=== PATIENT | male | born 1955 | race Caucasian/White ===

== ENCOUNTER 2017-08-03 23:04 | Inpatient (IN) | payer OTHER, MEDICAID ==
--- NOTE | 2017-08-03 23:12 | EDPHY ---
H & P HPI/ROS: HPI CHIEF COMPLAINT: Chest pain times 45 minutes cardiac activation in the field by EMS STEMI. HISTORY OF PRESENT ILLNESS: This patient very pleasant 61-year-old male, presents emergency room by EMS with chest pain. He describes his chest pain is left-sided radiates to his left neck and left arm. Describes it as a "burp that will move "he is diaphoretic. He called 911. This happened when he got out of the shower and was at rest. He denies any nausea vomiting denies shortness of breath. Denies pleuritic pain. Denies back pain or abdominal pain. Currently his pain is 8/10. He received 2 rounds of nitroglycerin by EMS , full-dose aspirin, 10 mg IV morphine. Continues to have ongoing pain. Upon arrival to the emergency room is hemodynamically stable however noted to be diaphoretic. Complaining of 8/10 left-sided chest pain. Vital signs stable. Not hypotensive. EMS activated cardiac alert in the field for a inferior ST elevation IA. Past Medical History: Hypertension, hyperlipidemia, smokes tobacco Past Surgical History: Left knee surgery, left hip surgery. Social History: Half pack per day of tobacco. Family History: Noncontributory ROS REVIEW OF SYSTEMS: A comprehensive 10 point review of systems is otherwise negative aside from elements mentioned in the history of present illness. Exam Constitutional appears nontoxic, triage nursing summary reviewed, vital signs reviewed, awake/alert. Eyes normal conjunctivae and sclera, EOMI, PERRLA. HENT normal inspection, atraumatic, moist mucus membranes, no epistaxis, neck supple/ no meningismus, no raccoon eyes. Respiratory clear to auscultation bilaterally, normal breath sounds, no respiratory distress, no wheezing. Cardiovascular rate normal, regular rhythm, no murmur, no edema, distal pulses normal. Gastrointestinal soft, non-tender, no rebound, no guarding, normal bowel sounds, no distension, no pulsatile mass. Genitourinary no CVA tenderness. Musculoskeletal no midline vertebral tenderness, full range of motion, no calf swelling, no tenderness of extremities, no meningismus, good pulses, neurovascularly intact. Skin pink, warm, & dry, no rash, skin atraumatic. Neurologic awake, alert and oriented x 3, AAOx3, moves all 4 extremities equally, motor intact, sensory intact, CN II-XII intact, normal cerebellar, normal vision, normal speech. Psychiatric normal mood/affect. Heme/Lymph/Immune no lymphadenopathy. Differential Diagnosis: Includes but is not limited to in a particular order acute coronary syndrome, ST-elevation IA, inferior IA, inferior IA with posterior circulation involvement, aortic dissection, pulmonary embolism, decompensated heart failure Medical Decision Making: Plan for this patient cardiac alert and label cutter activation, patient is ST-elevation IA. He has already receive full-dose aspirin. He has been placed in ER room 2. Will be prepped for cardiac catheterization. 2 large-bore IVs. 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 IV morphine for pain control. Re-evaluation: EKG interpretation by me on record in [facility] system. Impression time of EKG 230, this is sinus rhythm rate of 55, this shows an ST elevation IA in inferior leads to 3 AVF. The reciprocal changes in V1 V2 V3. 2313: Dr. Rollins with cardiology notified. prosthetics lab technician team activated. Patient be emergently brought up to cardiac catheterization replaced in for intervention. Additional morphine ordered for pain control. Critical Care: Total Critical Care Time Spent Managing this Patient: 25 Minutes. This time was spent Exclusively with this patient. This Care was exclusive of procedures. The Organ System/life at risk was cardiac This Patient was in Critical Condition because life-threatening cardiac IA. ST elevation IA. Source: Patient, EMS Constitutional: Initial Vital Signs O2 Sat (%) 96 08/03/17 23:05 O2 Delivery Mode Nasal Cannula O2 (L/minute) 2 Allergies/Adverse Reactions: No Known Allergies Allergy (Unverified 08/03/17 23:21) Home Medications: Medication Instructions Recorded Aspirin 08/03/17 PRILOSEC 08/03/17 Medical Decision Making - Diagnostics Imaging Results: Imaging Impressions Chest X-Ray 08/03/17 23:07 Impression: No evidence for acute cardiopulmonary abnormality. Hiatal hernia. - Data Points Laboratory Results: 08/03/17 23:10 Creatine Kinase 106 IU/L IU/L (0-224) CK-MB (CK-2) Fraction 1.83 ng/mL ng/mL (0.00-3.19) Troponin I 0.139 ng/mL H ng/mL (0.000-0.034) Medications Given: Hydrocodone Bitart/Acetaminophen ([place] 5/325) 1 - 2 tab PO Q4HRS PRN PRN Reason: Pain, Moderate Stop: 08/14/17 01:20 Last Admin: 08/04/17 06:36 Dose: 2 tab Sodium Chloride (Ns) 1,000 mls @ 100 mls/hr IV CONT MIS Stop: 08/04/17 11:29 Last Admin: 08/04/17 01:30 Dose: 1,000 mls Metoprolol Tartrate (Lopressor) 12.5 mg PO BID MIS Stop: 01/31/18 01:29 Last Admin: 08/04/17 03:06 Dose: 12.5 mg Morphine Sulfate (Morphine) 2 mg IVP Q1HR PRN PRN Reason: Pain, Severe Unable to Take PO Stop: 08/14/17 01:20 Last Admin: 08/04/17 05:50 Dose: 2 mg Discontinued Medications Sodium Chloride (Ns) 1,000 mls @ 0 mls/hr IV ONCE ONE PRN Reason: Wide Open Stop: 08/03/17 23:17 Last Admin: 08/03/17 23:16 Dose: 1,000 mls Morphine Sulfate (Morphine) 4 mg IVP EDNOW ONE Stop: 08/03/17 23:17 Last Admin: 08/03/17 23:16 Dose: 4 mg Morphine Sulfate (Morphine) 4 mg IVP EDNOW ONE Stop: 08/03/17 23:24 Last Admin: 08/03/17 23:23 Dose: 4 mg Ondansetron HCl (Zofran) 4 mg IVP EDNOW ONE Stop: 08/03/17 23:17 Last Admin: 08/03/17 23:16 Dose: 4 mg Prasugrel (Effient) 60 mg PO ONCE ONE Stop: 08/04/17 01:22 Last Admin: 08/04/17 02:52 Dose: 60 mg Departure - Departure Disposition: [facility] Acute Clinical Impression: ST elevation IA (STEMI) Qualifiers: Involved coronary artery: unspecified coronary artery Qualified Code(s): I21.3 - ST elevation (STEMI) myocardial infarction of unspecified site Condition: Critical
[2017-08-03] MEDS ORDERED: ONDANSETRON 4 MG/2 ML VIAL ONE (23:13)
--- NOTE | 2017-08-03 23:13 | CPEKG ---
Heart Rate: 55 RR Interval: 1091 P-R Interval: 192 QRSD Interval: 92 QT Interval: 440 QTC Interval: 421 P [place]: 62 QRS [place]: 61 T Wave [place]: 92 EKG Severity - ABNORMAL ECG - EKG Impression: SINUS RHYTHM EKG Impression: INFERIOR INJURY, PROBABLE EARLY ACUTE INFARCT EKG Impression: CONSIDER POSTERIOR WALL INVOLVEMENT Electronically Signed By: Wander Arellano 05-Aug-2017 11:55:53
[2017-08-03] MEDS ORDERED: NS 1,000 ML IV ONE (23:16)
[2017-08-03] MEDS ORDERED: ONDANSETRON 4 MG/2 ML VIAL IVP ONE (23:16)
[2017-08-03] MEDS ORDERED: IOPAMIDOL (ISOVUE-370) 150 ML BTL IV ONE (23:18)
[2017-08-03] MEDS ORDERED: fentaNYL 100 MCG/2 ML INJ ONE (23:18)
[2017-08-03] MEDS ORDERED: MIDAZOLAM 2 MG/2 ML VIAL ONE (23:18)
[2017-08-03] MEDS ORDERED: LIDOCAINE 1% 300 MG/30 ML SDV ONE (23:19)
[2017-08-03] MEDS ORDERED: HEPARIN 10,000 UNIT/10 ML MDV ONE (23:22)
[2017-08-03] MEDS ORDERED: VERAPAMIL 5 MG/2 ML VIAL ONE (23:22)
[2017-08-03] MEDS ORDERED: BIVALIRUDIN 250 MG/5 ML VIAL IV ONE (23:43)
[2017-08-03] MEDS ORDERED: ATROPINE SULFATE 1 MG/10 ML SYR ONE (23:55)
[2017-08-03] MEDS ORDERED: EPINEPHrine 1 MG/10 ML SYR IVP ONE (23:56)
[2017-08-04 00:01] LABS: CREATINE KINASE-MB FRACTION 1.83 ng/mL (0.00-3.19); TROPONIN I 0.139 ng/mL (0.000-0.034)
[2017-08-04] MEDS ORDERED: EPTIFIBATIDE 200 MG/100 ML BOTTLE IV ONE (00:02)
[2017-08-04] MEDS ORDERED: fentaNYL 100 MCG/2 ML INJ ONE (00:09)
[2017-08-04] MEDS ORDERED: MIDAZOLAM 2 MG/2 ML VIAL ONE (00:09)
[2017-08-04] MEDS ORDERED: NITROGLYCERIN 1,500 MCG/15 ML VIAL MISC ONE (00:14)
[2017-08-04] MEDS ORDERED: IOPAMIDOL (ISOVUE-370) 150 ML BTL IV ONE ×2 (00:24→00:44)
[2017-08-04] MEDS ORDERED: PRASUGREL HCL 10 MG TAB ONE (01:06)
[2017-08-04] MEDS ORDERED: PRASUGREL HCL 10 MG TAB PO ONE (01:21)
[2017-08-04] MEDS ORDERED: ACETAMINOPHEN 325 MG TAB PO PRN (01:21)
[2017-08-04] MEDS ORDERED: LORazepam 2 MG/ML INJ IVP PRN (01:21)
[2017-08-04] MEDS ORDERED: TEMAZEPAM 15 MG CAP PO PRN (01:21)
[2017-08-04] MEDS ORDERED: ATROPINE SULFATE 1 MG/10 ML SYR IVP PRN (01:21)
[2017-08-04] MEDS ORDERED: NITROGLYCERIN 0.4 MG BTL SL PRN (01:21)
[2017-08-04] MEDS ORDERED: NS 1,000 ML IV SCH (01:30)
--- NOTE | 2017-08-04 01:52 | CPEKG ---
Heart Rate: 59 RR Interval: 1017 P-R Interval: 196 QRSD Interval: 78 QT Interval: 472 QTC Interval: 468 P [place]: 63 QRS [place]: 59 T Wave [place]: 85 EKG Severity - ABNORMAL ECG - EKG Impression: SINUS RHYTHM EKG Impression: ATRIAL PREMATURE COMPLEX EKG Impression: INFERIOR INJURY, PROBABLE EARLY ACUTE INFARCT EKG Impression: CONSIDER POSTERIOR WALL INVOLVEMENT Electronically Signed By: Wander Arellano 04-Aug-2017 13:47:49
--- NOTE | 2017-08-04 02:39 | GHP ---
[f rep st] HISTORY AND PHYSICAL DATE OF ADMISSION: 08/03/2017 REASON FOR ADMISSION: Acute inferior ST-segment elevation myocardial infarction. HISTORY: The patient is a 61-year-old male with no prior cardiac history. However, he does have a s ignificant cardiovascular risk profile. Approximately 60-90 minutes prior to arrival to the hospital , he developed the onset of 10/10 substernal chest discomfort described as a pressure type sensation with radiation to the left arm. He did not have any associated diaphoresis. He did feel short of br eath and had nausea. Because of the persistent nature of his pain, paramedics were summoned. His EC G in the field demonstrated inferior ST-segment elevation. A cardiac alert was activated. In the em ergency room, the patient continued to have 8/10 chest pain after having received nitroglycerin and m orphine. Preparations were made to take the patient emergently to the cardiac catheterization lab. PAST MEDICAL HISTORY: He reports borderline hypertension and borderline hyperlipidemia, neither of w hich is currently being treated. He has a history of osteoarthritis and is status post total hip rep lacement and total knee replacement on the left. He has a hiatal hernia with acid reflux. FAMILY HISTORY: His father from cardiovascular disease. I do not have details on his chinedu castellano at presentation. SOCIAL HISTORY: Patient is . He is accompanied to the hospital by several family members. Esperanza castellano smokes 1/2 to 3/4 of a pack of cigarettes per day. He does not consume alcohol. 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 REVIEW OF SYSTEMS: Apart from the chest discomfort that prompted yana's admission to the hospital , a 10-point review was negative. PHYSICAL EXAMINATION: VITAL SIGNS: Blood pressure 111/82, heart rate 55 beats per minute with sinus rhythm on the monitor, O2 saturation 96% on 2 L/minute by nasal cannula. GENERAL: The patient is a somewhat ashen appearing middle-aged male. He is alert and oriented x3. He continues to complain o f level 8 chest discomfort. HEAD/NECK: No scleral icterus. Mucous membranes moist. Carotid pulses 2+ without bruits. There is no JVD. CHEST: Lung ponce clear to auscultation. CARDIAC: Regular rate and rhythm with normal S1 and S2. No murmur or gallop appreciated. ABDOMEN: Soft, nontender, nondistended, with normoactive bowel sounds. EXTREMITIES: 2+ pulses and no peripheral edema. LABORATORY DATA: In the emergency room his initial CPK was 106 and troponin was 0.139. ECG: His ECG demonstrates normal sinus rhythm. He has 2-[address]-segment elevation in leads II, I II, and AVF. He has precordial reciprocal ST-segment depression. IMPRESSION: This is a 61-year-old male with a significant cardiovascular risk profile, who presents relatively early in the course of an acute inferior ST-segment elevation myocardial infarction. He h ad a brief episode of nonsustained ventricular tachycardia lasting only a few seconds in the emergenc y room. Otherwise, he has been hemodynamically stable. PLAN: Preparations are underway to take the patient emergently to the cardiac catheterization lab fo r diagnostic angiography followed by percutaneous coronary intervention of the infarct-related artery . It is expected that he will require a greater than 2 midnight stay for treatment of his heart mor ck. /[id number]/MODL
[2017-08-04 03:00] LABS: % IMMATURE GRANULYOCYTES 0.5 % (0.0-1.1); ABSOLUTE IMMATURE GRANULOCYTES 0.07 10^3/uL (0.00-0.10); ADD DIFF? NO; ADD MORPH? NO; ADD SCAN? NO; ATYPICAL LYMPHOCYTE FLAG 0 (0-99); FRAGMENT RBC FLAG 20 (0-99); HEMOGLOBIN 9.7 g/dL (13.7-17.5); LEFT SHIFT FLG 0 (0-99); LIPEMIA HEMOLYSIS FLAG 80 (0-99); MEAN CELL HEMOGLOBIN CONCENTR. 31.3 g/dL (32.4-36.7); MEAN CELL VOLUME 76.7 fL (81.5-99.8); MEAN PLATELET VOLUME 9.8 fL (8.7-11.7); PLATELET CLUMPS FLAG 10 (0-99); PLATELET COUNT 259 10^3/uL (150-400); RED BLOOD CELL COUNT 4.04 10^6/uL (4.40-6.38); RED CELL DISTRIBUTION WIDTH 18.5 % (11.5-15.2)
[2017-08-04] MEDS: METOPROLOL TARTRATE 25 MG TAB PO SCH ×4 (03:06→21:23)
[2017-08-04 03:47] LABS: ALBUMIN 3.1 g/dL (3.5-5.0); ANION GAP 8 mEq/L (8-16); ASPARTATE AMINOTRANSFERASE 67 IU/L (17-59); BILIRUBIN,TOTAL 0.4 mg/dL (0.1-1.4); CALCIUM 8.2 mg/dL (8.5-10.4); CARBON DIOXIDE 26 mEq/l (22-31); CHLORIDE 102 mEq/L (97-110); CHOLESTEROL 140 mg/dL (140-220); CHOLESTEROL/HDL RATIO 4.12 RATIO (1.00-4.97); CREATININE 0.9 mg/dL (0.7-1.3); GLOMERULAR FILTRATION RATE > 60; GLUCOSE 107 mg/dL (70-100); HIGH DENSITY LIPOPROTEIN 34 mg/dL (40-65); LACTATE DEHYDROGENASE 467 IU/L (313-618); LDL/HDL RATIO 2.62 RATIO (1.00-3.64); LOW DENSITY LIPOPROTEIN 89 mg/dL (80-100); MAGNESIUM 2.1 mg/dL (1.6-2.3); NON-HIGH DENSITY LIPOPROTEIN 106 mg/dL (90-129); POTASSIUM 4.1 mEq/L (3.5-5.2); SODIUM 136 mEq/L (134-144); TRIGLYCERIDE 87 mg/dL (40-150); VERY LOW DENSITY LIPOPROTEINS 17 mg/dL (8-25)
[2017-08-04] MEDS: HYDROCODONE/APAP 5/325 TAB PO PRN ×3 (06:36→18:09)
[2017-08-04] MEDS: ASPIRIN EC 325 MG TAB PO SCH (08:36)
[2017-08-04] MEDS: NICOTINE 7 MG/24 HR PATCH TD SCH (08:36)
[2017-08-04] MEDS ORDERED: ATORVASTATIN CALCIUM 20 MG TAB PO SCH (09:00)
--- NOTE | 2017-08-04 09:13 | CPEKG ---
Heart Rate: 48 RR Interval: 1250 P-R Interval: 196 QRSD Interval: 76 QT Interval: 452 QTC Interval: 404 P [place]: 32 QRS [place]: 42 T Wave [place]: -6 EKG Severity - ABNORMAL ECG - EKG Impression: SINUS BRADYCARDIA EKG Impression: PROBABLE POSTERIOR INFARCT EKG Impression: BORDERLINE T ABNORMALITIES, INFERIOR LEADS EKG Impression: IMPROVEMENT IN ST/T WAVE CHANGES NOTED IN COMPARISON TO PRIOR. RECENT EKG Impression: INFERIOR/INFEROLATERAL MYOCARDIAL INFARCTION Electronically Signed By: Wander Arellano 04-Aug-2017 13:48:22
--- NOTE | 2017-08-04 09:20 | CPIP ---
[f rep st] INVASIVE CARDIAC PROCEDURE DATE OF PROCEDURE: 08/03/2017 PROCEDURE PERFORMED: 1. Left heart catheterization. 2. Left ventriculogram. 3. Coronary angiography. 4. Percutaneous coronary intervention of the right coronary artery. INDICATION FOR PROCEDURE: Acute inferior ST-segment elevation myocardial infarction. DETAILS OF PROCEDURE: The right groin was prepped and draped in sterile fashion. A 6-Filipino sheath was placed in the right femoral artery. Coronary angiography was carried out using standard Ivana catheters and techniques. Please refer to the interventional section of this report for details rega rding the PCI procedure. Following the interventional portion of the procedure, a left ventriculogra m was performed in the 30 degree CELESTE projection. FINDINGS: Hemodynamics: Central aortic pressure was normal. Left ventricular end-diastolic pressur e was elevated at 32 mmHg. There was no gradient on pullback from the left ventricle to the aorta. Left ventriculogram: Left ventricular systolic function is overall preserved with an estimated eject ion fraction of 55%. There is severe hypokinesis of the mid inferior wall. Coronary angiography: The patient has a right dominant circulation pattern. 1. Left main: The left main coronary is normal in appearance. 2. Left anterior descending: The left anterior descending has a proximal stenosis of approximately 30% to 40%. The mid left anterior descending has a very eccentric shelf-like lesion producing a sten osis of approximately 60%. Beyond the origin of the 3rd diagonal branch, the mid LAD contains a segm ent of disease up to 60%. 3. Circumflex: The circumflex is comprised of a single trifurcated obtuse marginal branch. The pro [id number] of this vessel has mild irregularities. 4. Right coronary artery: The RCA is a large caliber vessel with diffuse [id number]-wf-[id number] atheroscl erosis throughout its proximal and mid portions. At the junction of the mid and distal thirds of the RCA, there is a complete thrombotic occlusion. PERCUTANEOUS CORONARY INTERVENTION: Based on the patient's clinical presentation and diagnostic bell ography, the decision was made to perform percutaneous coronary intervention of the RCA. The patient received intravenous Angiomax. A 6-Filipino Hockey Stick 1 guide catheter was advanced to the RCA ost ium. An Intuition guidewire was advanced into the far distal portion of the RCA. Two passes were pe rformed with a Pronto aspiration catheter. The elapsed time from the patient's arrival to the [facility] to the delivery of the first reperfusion device was 55 minutes. At this point, angiography reveal ed gnosticism of KERLINE 1 flow into the distal branches of the RCA. There was a high-grade stenosis o f 80% to 90% at the site of the previous total occlusion. There was significant thrombus burden in t he distal RCA and its branches; therefore, intravenous Integrilin was initiated. Pre-dilatation of t he high-grade lesion at the junction of the mid and distal thirds of the RCA was performed using a 3. 5 x 12 mm Emerge balloon. At this point, there was significantly improved flow into the distal RCA; however, the posterior descending branch was thrombotically occluded in its proximal portion. There was a small posterolateral branch that was patent; however, the continuation of the distal RCA contin ued to be completely occluded. The patient was given intravenous nitroglycerin and we allowed time f or the Integrilin to begin to take effect. Slowly, flow into the distal RCA and posterior descending branch improved; however, the far distal RCA remained thrombotically occluded. Therefore, the Pront o aspiration catheter was taken back into the far distal RCA and an additional aspiration run was per formed. At this point, angiography revealed KERLINE 2-3 flow in the PDA, 1st posterolateral branch, and final posterolateral branch. There was a stenosis of at least 70% in the proximal portion of the po sterior descending branch. The distal RCA had a stenosis of 90% just prior to the final posterolater al branch. A 2.25 x 20 mm Rebel stent was advanced into the far distal RCA immediately proximal to t he final posterolateral branch and was deployed at high pressure. The guidewire was withdrawn and re directed down the posterior descending branch. A 2.25 x 12 mm Rebel stent was advanced into position in the proximal posterior descending branch and was deployed at high pressure. Finally, a 4.5 x 12 mm Rebel stent was advanced into the qbz-mv-nzfxul RCA and was deployed at high pressure. The stent was post dilated with a 5.0 x 8 mm NC Emerge balloon. Final angiograms demonstrated 0% stenosis at a ll 3 stent sites and KERLINE 2-3 flow throughout the RCA and its distal branches. Bare metal stents were selected for use in this case for 2 reasons. First, based on the patient's an atomy, I thought that consideration might need to be given to coronary bypass surgery for his LAD and diagonal disease. Second, because of the heavy thrombus burden at the beginning of the case and bec ause of the somewhat reduced KERLINE flow rate, I wanted to select stents which would be re-endotheliali zed as rapidly as possible to reduce his risk for subacute stent thrombosis. COMPLICATIONS: None. CONCLUSIONS: 1. Acute inferior ST-segment elevation myocardial infarction due to thrombotic occlusion of the righ t coronary artery. 2. Mildly reduced left ventricular systolic function with mid inferior wall hypokinesis. 3. Coronary artery disease, as described above. 4. Successful percutaneous intervention of 3 sites in the right coronary artery using bare metal cheli nts. /[id number]/MODL
[2017-08-04 09:39] LABS: CK-MB INTERPRETATION POSITIVE (NEGATIVE)
[2017-08-04] MEDS ORDERED: NON-FORMULARY NEW DRUG (Omeprazole [Prilosec 20 Mg] 20 MG) PO SCH (15:45)
[2017-08-04] MEDS: ONDANSETRON 4 MG/2 ML VIAL IVP PRN ×2 (15:51→19:59)
[2017-08-04] MEDS: OMEPRAZOLE 20 MG PO SCH ×2 (16:00→21:24)
[2017-08-04 17:03] LABS: CK-MB INTERPRETATION POSITIVE (NEGATIVE)
--- NOTE | 2017-08-04 17:41 | PDCARPN ---
Cardiology Progress Note Assessment/Plan: Note: The patient was seen at approximately 11:00 this morning. 61-year-old male who presented late last night with an acute inferior ST segment elevation myocardial infarction. Taken emergently to the cardiac microbiological lab technician for angiography and intervention consisting of PCI wiht BMS at three sites in the RCA. No chest pain this morning. No complications at right femoral catheterization site. Cardiac catheterization images reviewed with the patient and his family. Inferior STEMI- CPK up to 2,656 this afternoon. Has preserved LV systolic function. No evidence of CHF. Now on beta madhu therapy. No indication for JAMARI-I or ARB based on LVEF. Coronary Artery Disease- has moderate to severe residual LAD disease. Was not experiencing angina prior to his acute infarction. Therefore, will plan for exercise stress test with nuclear imaging. The patient received bare-metal stents for rationale mentioned in his cardiac catheterization report. However, will plan for 12 months of dual antiplatelet therapy on the basis of his KS. Nonsustained Ventricular Tachycardia- episodes of NSVT up to 8-10 beats overnight. Continue beta madhu; moderate bradycardia currently limits ability to up titrate. Secondary Prevention- discussed the importance of smoking cessation and heart healthy dietary/exercise habits with the patient and his family. Statin therapy initiated. 08/04/17 17:38 Subjective: Some right shoulder pain; o/w feels good. Reviewed/Discussed With: family Objective: Vital Signs (8 Hrs) Temp Pulse Resp BP Pulse Ox 08/04/17 17:00 48 L 16 114/72 95 08/04/17 15:00 47 L 14 114/81 H 95 08/04/17 14:00 48 L 18 111/72 95 08/04/17 13:00 36.6 C 50 L 18 119/68 94 08/04/17 12:00 54 L 17 113/82 H 95 08/04/17 11:46 64 133/48 H 08/04/17 11:00 54 L 13 133/48 H 96 08/04/17 10:00 57 L 15 118/80 95 Intake/Output (24 Hrs) 08/03/17 08/04/17 08/05/17 05:59 05:59 05:59 Intake Total 3861 2325 Output Total 900 540 Balance 2961 1785 Intake: Oral (ml) 200 1240 IV Intake (ml) 2661 100 IV Infused (ml) 1000 985 Ns 1,000 ml @ 100 mls/hr 985 IV CONT MIS Rx#: [id number] Output: Urine (ml) 900 540 Urinal 900 540 Other: Weight 80.6 kg Intake Quantity Yes Sufficient Number of Voids Urinal 3 Result Diagrams: 08/04/17 02:30 08/04/17 02:30 Cardiac Labs: Cardiac Lab Results (72 Hrs) 08/04/17 08/04/17 16:00 08:20 CK-MB (CK-2) Fraction 217.00 H 185.00 H Troponin I 49.600 H 37.600 H - Physical Exam Constitutional: WDWN, no apparent distress Eyes: anicteric sclera Ears, Nose, Mouth, Throat: moist mucous membranes Cardiovascular: regular rate and rhythm, no murmurs, no rubs, no gallops Respiratory: clear to auscultate bilat Gastrointestinal: normoactive bowel sounds, no tenderness, no masses Skin: no rashes, no edema Neurologic: AAOx3 Psychiatric: not anxious ICD10 Worksheet Patient Problems: Problems Problem Status Onset ST elevation KS (STEMI) Acute
--- NOTE | 2017-08-04 17:49 | ECHO ---
[email or web address] [address] [address] Main: [phone] Fax: Transthoracic Echocardiogram Name: AMBER ZACARIAS MR#: [id number] Study Date: 08/04/2017 Study Time: 07:45 AM Date of : 1955 Age: 61 year(s) Height: 177.8 cm (70 in.) Weight: 80.29 kg (177 lb.) BSA: 1.98 m2 Gender: Male Examination: Echo Indication: Inferior STEMI Image Quality: Contrast: Requested by: Mansoor Rollins BP: 106 mmHg/70 mmHg Heart Rate: Rhythm: Indication: Inferior STEMI Procedure Staff Chain Puller: Sandra Nolasco Reading Physician: Mansoor Rollins Requesting Provider: aMnsoor Rollins Conclusions: Normal size left ventricle. The ejection fraction is visually estimated to be 50 %. LV basal/mid infeior and inferoseptal boyce gricelda akinetic. All remaining LV segments have normal segmental motion.. Trivial tricuspid valve regurgitation. Measurements: Chambers Valvular Assessment AV/MV Valvular Assessment TV/PV Normal Normal Normal Name Value Range Name Value Range Name Value Range Ao Angela (MM): 3.8 cm (2.2 cm-3.7 AV Vmax: 1.03 m/s (1 m/s-1.7 cm) m/s) IVSd (2D): 0.5 cm (0.6 cm-1.1 AV maxP mmHg ( - ) cm) MV E Vmax: 0.65 m/s ( - ) LVDd (2D): 5.7 cm (4.2 cm-5.9 MV A Vmax: 0.80 m/s ( - ) cm) MV E/A: 0.81 ( - ) LVDs (2D): 3.5 cm (2.1 cm-4 cm) LVPWd (2D): 0.9 cm (0.6 cm-1 cm) LVEF (BP): 49 % (>=55 %) Visual EF: 50 % Continued Measurements: Chambers Valvular Assessment AV/MV Name Value Name Value LADs: 3.3 cm MV E' Septal: 0.07 m/s LADs Lon.5 cm MV E/E' Septal: 9.00 LA Area: 19.9 cm2 MV E/E' Lateral: 7.10 Patient: AMBER ZACARIAS Study Date: 08/04/2017 Page 1 of 2 07:45 AM Findings: Left Ventricle: Normal size left ventricle. No LV hypertrophy. The ejection fraction is visually estimated to be 50 %. LV basal/mid infeior and inferoseptal boyce gricelda akinetic. All remaining LV segments have normal segmental motion.. Right Ventricle: Normal size right ventricle. Left Atrium: The left atrium is normal in size. Right Atrium: The right atrium is normal in size. Mitral Valve: The mitral valve is normal in appearance and function. Aortic Valve: The aortic valve is tri-leaflet. Tricuspid Valve: The tricuspid valve is normal in appearance and function. Trivial tricuspid valve regurgitation. Pulmonic Valve: The pulmonic valve is normal in appearance and function. Aorta: The aorta is normal. Pericardium: No pericardial effusion. (No Signature Object) Patient: AMBER ZACARIAS Study Date: 08/04/2017 Page 2 of 2 07:45 AM [id number]
[2017-08-04] MEDS ORDERED: DOXYLAMINE SUCCINATE 25 MG PO SCH (21:00)
[2017-08-04] MEDS: DOXYLAMINE SUCCINATE 25 MG PO SCH (21:25)
[2017-08-05] MEDS: HYDROCODONE/APAP 5/325 TAB PO PRN ×4 (00:51→20:33)
[2017-08-05 01:21] LABS: CK-MB INTERPRETATION POSITIVE (NEGATIVE)
[2017-08-05] MEDS ORDERED: ONDANSETRON DISINTEGRATING 4 MG TAB PO PRN (08:17)
[2017-08-05 08:36] LABS: % IMMATURE GRANULYOCYTES 0.4 % (0.0-1.1); ABSOLUTE IMMATURE GRANULOCYTES 0.05 10^3/uL (0.00-0.10); ADD DIFF? NO; ADD MORPH? NO; ADD SCAN? NO; ATYPICAL LYMPHOCYTE FLAG 0 (0-99); FRAGMENT RBC FLAG 20 (0-99); HEMATOCRIT 30.5 % (40.0-51.0); HEMOGLOBIN 9.7 g/dL (13.7-17.5); LEFT SHIFT FLG 0 (0-99); LIPEMIA HEMOLYSIS FLAG 80 (0-99); MEAN CELL HEMOGLOBIN CONCENTR. 31.8 g/dL (32.4-36.7); MEAN CELL VOLUME 75.3 fL (81.5-99.8); MEAN PLATELET VOLUME 10.1 fL (8.7-11.7); PLATELET CLUMPS FLAG 0 (0-99); PLATELET COUNT 246 10^3/uL (150-400); RED BLOOD CELL COUNT 4.05 10^6/uL (4.40-6.38); RED CELL DISTRIBUTION WIDTH 18.4 % (11.5-15.2)
--- NOTE | 2017-08-05 08:57 | CPEKG ---
Heart Rate: 51 RR Interval: 1176 P-R Interval: 180 QRSD Interval: 84 QT Interval: 464 QTC Interval: 428 P [place]: 58 QRS [place]: 65 T Wave [place]: -12 EKG Severity - ABNORMAL ECG - EKG Impression: SINUS RHYTHM EKG Impression: ABNORMAL T, CONSIDER ISCHEMIA, INFERIOR LEADS EKG Impression: ST ELEVATION TO THE INFERIOR LEADS ALSO NOTED Electronically Signed By: Wander Arellano 05-Aug-2017 11:56:00
[2017-08-05] MEDS: ASPIRIN EC 325 MG TAB PO SCH (09:10)
[2017-08-05] MEDS: ATORVASTATIN CALCIUM 40 MG TAB PO SCH (09:10)
[2017-08-05] MEDS: METOPROLOL TARTRATE 25 MG TAB PO SCH ×3 (09:10→22:11)
[2017-08-05 09:11] LABS: ANION GAP 8 mEq/L (8-16); CALCIUM 8.4 mg/dL (8.5-10.4); CARBON DIOXIDE 25 mEq/l (22-31); CHLORIDE 106 mEq/L (97-110); CREATININE 0.7 mg/dL (0.7-1.3); GLOMERULAR FILTRATION RATE > 60; GLUCOSE 94 mg/dL (70-100); MAGNESIUM 1.9 mg/dL (1.6-2.3); POTASSIUM 4.3 mEq/L (3.5-5.2); SODIUM 139 mEq/L (134-144)
[2017-08-05] MEDS: NICOTINE 7 MG/24 HR PATCH TD SCH ×2 (09:11→17:15)
[2017-08-05] MEDS: PRASUGREL HCL 10 MG TAB PO SCH (09:11)
[2017-08-05] MEDS ORDERED: NS 500 ML IV ONE (09:29)
--- NOTE | 2017-08-05 09:34 | PDCARPN ---
Cardiology Progress Note Assessment/Plan: Assessment/plan: 61 yo M with FHx of CAD and tobacco abuse. Admitted late with acute inferior STEMI. Taken emergently to cath by Dr. Rollins. Large thrombus burden in RCA, tx with aspiration and BMS x 3. Residual moderate LAD disease. Peak trop 49. LVEF 50. 1. Acute inferior STEMI: uptitrate BB. On DAPT and atorvastatin. Cardiac rehab consult. 2. VT: uptitrate BB. Watch HR 3. Tob abuse: on nicotine patch 4. Past HTN: well controlled here 5. Anemia: will need outpt follow up 6. Lipids: now on statin Transfer to tele. Possible discharge tomorrow if rhythm stable and no further nausea/dizziness 08/05/17 09:31 Subjective: Liborio had some dizziness and nausea this morning. No CP. Resolved with zofran and breakfast. No groin pain. Reviewed/Discussed With: multidisciplinary team Time Spent With Patient: 20 minutes Objective: Vital Signs (8 Hrs) Temp Pulse Resp BP Pulse Ox 08/05/17 09:00 53 L 18 116/72 98 08/05/17 08:00 60 16 139/74 H 98 08/05/17 07:00 55 L 18 131/83 H 99 08/05/17 06:00 56 L 19 123/70 H 90 L 08/05/17 05:00 58 L 18 115/78 89 L 08/05/17 04:00 37.0 C 50 L 12 115/77 92 08/05/17 03:00 89 18 90 L 08/05/17 02:00 53 L 17 92 Intake/Output (24 Hrs) 08/04/17 08/05/17 08/06/17 05:59 05:59 05:59 Intake Total 3861 2825 Output Total 900 540 Balance 2961 2285 Intake: Oral (ml) 200 1740 IV Intake (ml) 2661 100 IV Infused (ml) 1000 985 Ns 1,000 ml @ 100 mls/hr 985 IV CONT MIS Rx#: [id number] Output: Urine (ml) 900 540 Urinal 900 540 Other: Weight 80.6 kg Intake Quantity Yes Sufficient Number of Voids Urinal 3 Number of Stools Urinal 0 NAD JVP <10 RRR no m/r/g lungs CTAB No edema Result Diagrams: 08/05/17 08:28 08/05/17 08:28 Cardiac Labs: Cardiac Lab Results (72 Hrs) 08/05/17 08/04/17 08/04/17 00:38 16:00 08:20 CK-MB (CK-2) Fraction 118.00 H 217.00 H 185.00 H Troponin I 49.600 H 49.600 H 37.600 H EKG: serial ECG since admission reviewed: NSR, inferior STEMI with evolution Telemetry: NSR, short runs of nonsustained VT ICD10 Worksheet Patient Problems: Problems Problem Status Onset ST elevation MD (STEMI) Acute
--- NOTE | 2017-08-05 14:41 | ASMTCMCOM ---
CM Note CM Note Notes: Reviewed chart and d/w RN. Pt is s/p STEMI. Anticipate pt will dc home w/ w/ no CM needs when medically stable. CM w/f for changes/needs. Date Signed: 08/05/2017 02:40 PM Electronically Signed By:Kendal Presley RN
[2017-08-05] MEDS: DOXYLAMINE SUCCINATE 25 MG PO SCH (20:38)
[2017-08-05] MEDS: OMEPRAZOLE 20 MG PO SCH (20:40)
[2017-08-06 04:39] LABS: HEMATOCRIT 30.4 % (40.0-51.0); HEMOGLOBIN 9.2 g/dL (13.7-17.5); MEAN CELL HEMOGLOBIN CONCENTR. 30.3 g/dL (32.4-36.7); RED CELL DISTRIBUTION WIDTH 18.5 % (11.5-15.2)
--- NOTE | 2017-08-06 05:58 | CPEKG ---
Heart Rate: 70 RR Interval: 857 P-R Interval: 172 QRSD Interval: 80 QT Interval: 400 QTC Interval: 432 P Schuyler: 34 QRS Schuyler: 59 T Wave Schuyler: -46 EKG Severity - ABNORMAL ECG - EKG Impression: SINUS RHYTHM EKG Impression: ABNORMAL T, CONSIDER ISCHEMIA, INFERIOR LEADS Electronically Signed By: Mansoor Rollins 06-Aug-2017 19:27:18
[2017-08-06 08:05] VITALS: BP 137/82; PULSE 67; RESP 17; TEMP 98.1; O2SAT 96
[2017-08-06] MEDS: ATORVASTATIN CALCIUM 40 MG TAB PO SCH (08:40)
[2017-08-06] MEDS: PRASUGREL HCL 10 MG TAB PO SCH (08:40)
[2017-08-06] MEDS: METOPROLOL TARTRATE 25 MG TAB PO SCH (08:41)
[2017-08-06] MEDS: ASPIRIN EC 325 MG TAB PO SCH (08:42)
[2017-08-06] MEDS: OMEPRAZOLE 20 MG PO SCH (08:50)
[2017-08-06] MEDS: NICOTINE 7 MG/24 HR PATCH TD SCH (08:50)
--- NOTE | 2017-08-06 10:36 | GDS ---
[f rep st] DISCHARGE SUMMARY PRIMARY PUBLIC WORKS SUPERVISOR: Mansoor Rollins MD. ADMISSION DIAGNOSES: 1. Acute inferior ST-elevation myocardial infarction. 2. Hypertension. 3. Tobacco abuse. 4. Anemia. 5. Dyslipidemia. DISCHARGE DIAGNOSES: 1. Inferior ST-elevation myocardial infarction, status post percutaneous coronary intervention to th e right coronary artery. Residual LAD disease. 2. Nonsustained ventricular tachycardia. 3. Tobacco abuse. 4. Hypertension. 5. Anemia. 6. Dyslipidemia. PROCEDURES DURING ADMISSION: 1. Emergent cardiac catheterization with Dr. Mansoor Rollins. Please see his dictated procedural not e. In summary, the patient had thrombotic occlusion at the mid RCA and 60% stenosis in the mid LAD a long with 60% stenosis in the distal LAD. The thrombotic disease of the right coronary artery was tr eated with thrombectomy and implantation of 3 bare metal stents (2.25 x 20 mm Reble stent, 2.25 x 12 mm Reble stent, and 4.5 x 12 mm Reble stent). The LAD was not intervened upon as the RCA was the cul prit vessel. 2. Echocardiogram: Normal size left ventricle. Ejection fraction low normal at 50% with inferior a nd inferoseptal akinesis. No significant valvular disease. 3. Serial electrocardiograms show inferior ST-elevation OR with expected evolution and improvement i n inferior ST-segment elevation. HOSPITAL COURSE: The patient is a 61-year-old male with a family history of coronary disease as well as tobacco abuse. He was brought in by ambulance with chest discomfort and found to have inferior S T elevation OR. 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 Rollins. Three bare metal stents were impl anted in the RCA after thrombectomy of the RCA. He never required balloon pump or pressor support. He did have some nonsustained VT the first 24 hours post OR, but within the second 24 hours of his ho spital stay was having only rare PVCs and rare ventricular couplets. He did have intermittent nausea and dizziness without syncope. No recurrent chest discomfort. No groin problems. He was ambulatin g in the halls without difficulty. Overnight on August 06, he did have a low-grade temperature which resolved with Tylenol. He is feel ing well at the time of discharge. DISCHARGE PHYSICAL EXAM: VITAL SIGNS: Blood pressure 137/82, heart rate 67, oxygen saturation 91% o n room air. GENERAL: Well-appearing, middle-aged male in no acute distress. CARDIOVASCULAR: JVP l ess than 10. Regular rate and rhythm without murmur, rub, or gallop. LUNGS: Clear to auscultation bilaterally without wheezes, rhonchi, or rales. ABDOMEN: Soft and nontender. Right inguinal area s hows minimal ecchymosis without hematoma or tenderness. EXTREMITIES: Warm and well perfused. Denie s cyanosis, clubbing, or edema. Intact distal pulses. DISCHARGE LABS: CBC on the shows white count 9.76, hematocrit 30.4, platelets 228. His admissi on hematocrit was 31. Sodium 139, potassium 4.3, chloride 106, bicarb 25, BUN 13, creatinine 0.7. P eak troponin 49.6. LDL 89. genetic testing is pending. DISCHARGE MEDICATIONS: Effient 10 mg daily, aspirin 325 mg daily, Tylenol p.r.n., atorvastatin 40 mg daily, metoprolol tartrate 12.5 mg t.i.d., NicoDerm patch 7 mg once daily. DISCHARGE INSTRUCTIONS AND FOLLOWUP: 1. The patient will be discharged home in stable condition. His is at the bedside, and we disc ussed at length activity recommendations and groin precautions as well as instructions for followup. 2. The patient will be enrolled in cardiac rehab. Rehab staff have met with the patient during his hospital admission. 3. Follow up with Dr. Rollins with a pre-visit Lexiscan myocardial perfusion stress test to assess the functional significance of his LAD lesion. 4. The patient was instructed to call immediately with any questions or symptoms of concern. 5. He did have some hypoxia during sleep during his hospitalization. Outpatient sleep medicine eval uation could be considered. Greater than 30 minutes were spent in discharge, discussion with patient and his , and coordinati on of care. Copy requested to: Primary Care Physician /[id number]/[id number]
[2017-08-08 14:53] LABS: 2C19S INTERPRETATION See Comments
== END 2017-08-06 11:49 | disposition home or self-care (01) | DRG 249 ==
LOC: F2N 08-04 01:18 → F2W 08-05 11:30
PROVIDERS: ADMIT Internal Medicine Interventional Cardiology; ATTEND Internal Medicine Interventional Cardiology
DX: I21.19 ST elevation (STEMI) myocardial infarction involving other coronary artery of inferior wall (principal); I25.10 Atherosclerotic heart disease of native coronary artery without angina pectoris; I47.2 Ventricular tachycardia; I10 Essential (primary) hypertension; E78.5 Hyperlipidemia, unspecified; K44.9 Diaphragmatic hernia without obstruction or gangrene; F17.210 Nicotine dependence, cigarettes, uncomplicated; Z96.642 Presence of left artificial hip joint; Z96.652 Presence of left artificial knee joint
CPT/HCPCS: 81225-90; 96374; C1725; C1757; C1760; C1769; C1876; C1887; J0461; J0583; J1200; J1327; J1644; J2250; J2405; J3010; Q9967